=== PATIENT | female | born 1945 | race Caucasian/White ===

== ENCOUNTER 2018-12-12 11:15 | Inpatient (IN) | payer OTHER ==
[~2018-12-12] VITALS: Ht 162.6 cm; Wt 88.5 kg
[2018-12-12] MEDS ORDERED: OMEPRAZOLE20 M1 PO (13:29)
[2018-12-12] MEDS ORDERED: TRIAMCINOLONE (13:31)
[2018-12-12] MEDS ORDERED: DILTIA PO (13:32)
[2018-12-12] MEDS ORDERED: LIPITOR20 MG PO (13:32)
[2018-12-12] MEDS ORDERED: SYNTHROID50 MCG PO (13:33)
[2018-12-17] MEDS ORDERED: DILTIAZEM ER180 MG PO (16:57)
[2018-12-19] MEDS ORDERED: ELIQUIS2.5 MG PO (16:52)
[2018-12-19] MEDS ORDERED: PERCOCET 5-3251 EACH PO (16:52)
[2018-12-19] MEDS ORDERED: CEFADROXIL500 MG PO (16:52)
== END 2018-12-19 19:00 | disposition home or self-care (01) | DRG 467 ==
LOC: MEDI 12-17 06:03 → O/R 12-17 06:03 → SURH 12-17 06:03 → RECOVERY 12-17 07:00 → MEDI 12-17 21:57 → SURH 12-18 16:43
PROVIDERS: ADMIT Orthopaedic Surgery
PROC: 0QRD0JZ Replacement of Right Patella with Synthetic Substitute, Open Approach (ICD-10-PCS; 2018-12-17)
PROC: 0SWC0JZ Revision of Synthetic Substitute in Right Knee Joint, Open Approach (ICD-10-PCS; principal; 2018-12-17 07:00)
DX: T84.018A Broken internal joint prosthesis, other site, initial encounter (principal); M80.00XA Age-related osteoporosis with current pathological fracture, unspecified site, initial encounter for fracture; D62 Acute posthemorrhagic anemia; T84.032A Mechanical loosening of internal right knee prosthetic joint, initial encounter; M17.11 Unilateral primary osteoarthritis, right knee; M85.462 Solitary bone cyst, left tibia and fibula; M25.662 Stiffness of left knee, not elsewhere classified; I10 Essential (primary) hypertension; E78.00 Pure hypercholesterolemia, unspecified; E03.8 Other specified hypothyroidism